=== PATIENT | female | born 1940 | race Caucasian/White ===

== ENCOUNTER → 2017-12-18 | Outpatient (CLI) | payer MEDICARE ==
--- NOTE | 2017-12-18 15:56 | RAD ---
EXAM: Bilateral lower extremity venous Doppler sonogram. HISTORY: Swelling and pain. TECHNIQUE: Bray scale and color Doppler sonographic evaluation of the bilateral lower extremity veins with spectral waveform analysis was performed. FINDINGS: There is normal color flow, normal compressibility and there are normal spectral waveforms in the common femoral, superficial femoral, popliteal, posterior tibial and greater saphenous veins. IMPRESSION: No Doppler evidence of lower extremity venous thrombosis. Electronically signed by: Carmita Zamora MD (12/18/2017 3:53 PM) [place] [id number]
== END | disposition home or self-care (01) ==
LOC: US 14:29
PROVIDERS: ATTEND Family Medicine
DX: M79.89 Other specified soft tissue disorders (principal); Z86.718 Personal history of other venous thrombosis and embolism
CPT/HCPCS: 93970

== ENCOUNTER → 2018-01-29 | Outpatient (CLI) | payer MEDICARE ==
[~2018-01-29] MED LIST: REGADENOSON 0.4 MG/5 ML DISP.SYRIN. IV ONE
--- NOTE | 2018-01-29 10:05 | CARD ---
MR#: [id number] Date of Study: 01/29/2018 Ordering Physician: SARAH CHILDS, Referring Physician: SARAH CHILDS, Tech: Arianne Lizama CRISTOPHER APPROVED REPORT EXAM: Two-dimensional and M-mode echocardiogram with Doppler and color Doppler. Other Information Quality : Fair Technically limited study due to body habitus. INDICATION Dyspnea on Exertion 2D DIMENSIONS RVDd2.6 (2.9-3.5cm)Left Atrium(2D)4.3 (1.6-4.0cm) IVSd1.1 (0.7-1.1cm)Aortic Root(2D)2.4 (2.0-3.7cm) LVDd4.0 (3.9-5.9cm)LVOT Diameter2.0 (1.8-2.4cm) PWd1.0 (0.7-1.1cm)LVDs2.6 (2.5-4.0cm) FS (%) 34.8 %SV44.5 ml LVEF(%)64.6 (>50%) Aortic Valve AoV Peak Jared.112.2cm/sAoV VTI23.5cm AO Peak GR.5.0mmHgLVOT Peak Jared.109.0cm/s AO Mean GR.3mmHgAVA (VMAX)3.20cm2 MAYELA (VTI)3.20cm2 Mitral Valve MV E Hknvpucy899.7cm/sMV DECEL JHWK254ab MV A Ovobkwpu846.7cm/sE/A Ratio0.8 Tricuspid Valve TR P. Jzoztsnz731wb/sRAP QPDGUDHG8ikUl TR Peak Gr.82yrZtBTTI20rnQt LEFT VENTRICLE The left ventricle is normal size. There is normal left ventricular wall thickness. The left ventricu lar systolic function is normal and the ejection fraction is within normal range. The Ejection Fracti on is 60-65%. There is normal LV segmental wall motion. Transmitral Doppler flow pattern is Grade I-a bnormal relaxation pattern. RIGHT VENTRICLE The right ventricle is normal size. The right ventricular systolic function is normal. ATRIA The left atrium is mildly dilated. The right atrium size is normal. The interatrial septum is intact with no evidence for an atrial septal defect or patent foramen ovale as noted on 2-D or Doppler imagi ng. AORTIC VALVE The aortic valve is calcified but opens well. Doppler and Color Flow revealed no significant aortic r egurgitation. There is no significant aortic valvular stenosis. MITRAL VALVE The mitral valve is calcified but opens well. Mitral annular calcification is mild. There is no evide nce of mitral valve prolapse. There is no mitral valve stenosis. Doppler and Color Flow revealed no m itral valve regurgitation noted. TRICUSPID VALVE The tricuspid valve is normal in structure and function. Doppler and Color Flow revealed trace tricus pid regurgitation. The PA pressure was estimated at 36 mmHg. There is no tricuspid valve stenosis. PULMONIC VALVE The pulmonic valve is not well visualized. Doppler and Color Flow revealed no pulmonic valvular regur gitation. There is no pulmonic valvular stenosis. GREAT VESSELS The aortic root is normal in size. The ascending aorta is normal in size. The IVC is normal in size a nd collapses >50% with inspiration. PERICARDIAL EFFUSION There is no evidence of significant pericardial effusion. Critical Notification Critical Value: No <Conclusion> The left ventricular systolic function is normal and the ejection fraction is within normal range. Th e Ejection Fraction is 60-65%. There is normal LV segmental wall motion. Signed by : Aaron Heredia, Electronically Approved : 01/29/2018 10:04:30
--- NOTE | 2018-01-30 10:42 | RAD ---
MR#: [id number] Date of Study: 01/30/2018 Ordering Physician: SARAH CHILDS, Referring Physician: KENNA JUNG Tech: MENDY Ramos APPROVED REPORT Test Type: Pharmacological Stress Nurse/Tech: Deborah Hatfield RN Test Indications: Dyspnea on exertion Cardiac History: Family history,COPD Medications: See Electronic Medical Record Medical History: See Electronic Medical Record Resting ECG: SR with PAC's Resting Heart Rate: 71 bpm Resting Blood Pressure: 136/65mmHg Pretest Chest Pain: No chest pain Nurse/Tech Notes S1,S2 and lungs are diminished in the bases. Consent: The procedure was explained to the patient in lay terms. Informed consent was witnessed. Waldemar eout was entered into [employer]. History and Stress Test performed by MENDY Ramos Pharm. Details Pharmacologic stress testing was performed using 0.4mg per 5ml of regadenoson given intravenously ove r 7-10 seconds. Stress Symptoms Dizziness POST EXERCISE Reason for Termination: Infusion complete Target HR: Yes Max HR: 158 bpm Max Blood Pressure: 146/49mmHg Blood Pressure response to exercise: Normal blood pressure response during stress. Heart Rate response to exercise: WNL Chest Pain: No. Arrhythmia: Yes. PAC's INTERPRETATION Stress EKG Conclusion: Baseline EKG showed sinus rhythm with PAC's. Non diagnostic changes at peak s tress. No arrhythmias. Imaging Protocol IMAGE PROTOCOL: Rest Tc-99m/stress Tc-99m 2 days Rest: Stress: Viability: Radiopharm.Tc99m BjxefokwqVy37c Sestamibi Dose33.4mCi 34mCi Duration 15min. 15min. Img Date 01/29/2018 01/30/2018 Inj-Img [id number]. 60min. Rest Admin Site:IV - Left AntecubitalAdministrator:MENDY Ramos Stress Admin Site: IV - Right AntecubitalAdministrator: MENDY Ramos STRESS DATA End Diast. Vol.83.0mlLVEDV index BSA38.0ml End Syst. Vol.13.0mlLVESV index BSA6.0ml Myocardial Ciit439.0gEject. Advcyflj98.0% Stress Scores Regional WT0.00Summed WT1.00 Regional WM0.00Summed WM0.00 Study quality was good. Left Ventricular size was Normal at Rest and Stress. Lung uptake was . Left Ventricular ejection fraction is 84%. The rest and stress images show normal perfusion, normal contraction and thickening. LV Perf. Quant 17 Seg. SSS0.00 17 Seg. SRS0.00 17 Seg. SDS0.00 Stress Defect Extent (% LAD)0.00Rest Defect Extent (% LAD)0.00Rev. Defect Extent (% LAD)0.00 Stress Defect Extent (% LCX) 0.00Rest Defect Extent (% LCX)0.00Rev. Defect Extent (% LCX)0.00 Stress Defect Extent (% RCA)0.00Rest Defect Extent (% RCA)0.00Rev. Defect Extent (% RCA)0.00 Stress Defect Extent (% TATYANA)0.00Rest Defect Extent (% TATYANA)0.00Rev. Defect Extent (% TATYANA)0.00 Conclusion 1. Regadenoson cardioisotope stress test did not show any evidence of ischemia or infarct. 2. Normal left ventricular systolic function with ejection fraction calculated at 84%. 3. Low risk for cardiac events. Signed by : Erik Duran, Electronically Approved : 01/30/2018 10:40:59
== END | disposition home or self-care (01) ==
LOC: NM 07:59
PROVIDERS: ATTEND Internal Medicine Cardiovascular Disease
DX: R06.09 Other forms of dyspnea (principal); Z86.718 Personal history of other venous thrombosis and embolism; Z82.5 Family history of asthma and other chronic lower respiratory diseases
CPT/HCPCS: 78452; 93306; 96374; 96375; A9500; 93017; 96376; J2785

== ENCOUNTER → 2018-10-01 | Outpatient (CLI) | payer MEDICARE ==
--- NOTE | 2018-10-01 16:48 | RAD ---
Examination: Left Lower Extremity Venous Doppler Ultrasound History: Left leg swelling Comparison: None Procedure: Bray scale, color flow 2D and spectal waveform analysis images are obtained with and without compression in the area of the common femoral vein, superficial femoral vein - femoral vein junction, main femoral vein (superficial femoral vein) and popliteal vein. Veins of the proximal calf are also imaged. Findings: There is normal duplex flow, color flow and compressibility of all visualized vein segments. No evidence of deep venous thrombus is present. The left peroneal veins are not well-visualized due to patient body habitus. Mild soft tissue edema in the left lower leg. Impression: No evidence of DVT in the visualized left lower extremity venous system. Electronically signed by: Luis Fernando Nicolas MD (10/01/2018 4:45 PM) [place] [id number]
== END | disposition home or self-care (01) ==
LOC: US 15:58
PROVIDERS: ATTEND Family Medicine
DX: M79.89 Other specified soft tissue disorders (principal); M79.662 Pain in left lower leg
CPT/HCPCS: 93971